=== PATIENT | female | born 1995 | race Caucasian/White ===

== ENCOUNTER → 2018-08-11 | Outpatient (CLI) | payer BC ==
--- NOTE | 2018-08-11 15:58 | RAD ---
Right breast ultrasound, 08/11/2018: HISTORY: Breast pain Patient describes generalized right breast pain with no palpable lump. The entire right breast was carefully scanned. Heterogeneous fibroglandular tissues are present. No solid mass or abnormal fluid collection is seen. IMPRESSION: No significant right breast abnormality is detected. Clinical surveillance is suggested. Electronically signed by: Jonathon Lazaro MD (08/11/2018 3:54 PM) [facility]
== END | disposition home or self-care (01) ==
LOC: US 15:14
PROVIDERS: ATTEND Physician Assistant
DX: N64.4 Mastodynia (principal)
CPT/HCPCS: 76641

== ENCOUNTER 2021-03-10 23:13 | Emergency (ER) | payer BC ==
[~2021-03-10] VITALS: Ht 157.5 cm; Wt 78.5 kg
--- NOTE | 2021-03-10 23:19 | PHYS DOC ---
Past History Past Medical History: Constipation, UTI General Adult HPI: HPI: ".. I ve been having pain in my abdomen..down her on my Rt..now.." Patient is a 25 year old female who presents with above hx and complaints mid and rt. lower abdomen pain. No history of bad food. No specific ill contacts. No history of recent travel. No history of trauma. Pain has been constant since 22 00 hours. Reportedly did have a bowel movement today. Patient have history of past urinary tract infections constipation. No history of ovarian cyst, STDs, kidney stones, dysmenorrhea, or endometriosis. No history immunosuppression. Pt. follows with [facility] for care. Review of Systems: Review of Systems: Constitutional: Denies fever or chills Eyes: Denies change in visual acuity HENT: Denies nasal congestion or sore throat Respiratory: Denies cough or shortness of breath Cardiovascular: Denies chest pain or edema GI: Complains of abdominal pain, nausea,. Denies vomiting, bloody stools or diarrhea : Denies dysuria Musculoskeletal: Denies back pain or joint pain Integument: Denies rash Neurologic: Denies headache, focal weakness or sensory changes Endocrine: Denies polyuria or polydipsia Lymphatic: Denies swollen glands Psychiatric: Denies depression or anxiety Family History: Family History: Noncontributory Current Medications: Current Meds: See nursing for home meds Allergies: Allergies: No known drug allergies Physical Exam: PE: Constitutional: Well developed, well nourished, no acute distress, non-toxic appearance. [] HENT: Normocephalic, atraumatic, bilateral external ears normal, oropharynx moist, no oral exudates, nose normal. [] Eyes: PERRLA, EOMI, conjunctiva normal, no discharge. [] Neck: Normal range of motion, no tenderness, supple, no stridor. [] Cardiovascular: Tachycardia heart rate regular rhythm, no murmur [] Lungs & Thorax: Bilateral breath sounds equal to apex with scattered wheezes auscultation [] Abdomen: Bowel sounds normal, soft, right mid and lower abdomen tenderness, no masses, no pulsatile masses. Distended. Rebound to mid abdomen. Patient declines pelvic exam at this time. Skin: Warm, dry, no erythema, no rash. [] Back: No tenderness, no CVA tenderness. [] Extremities: No tenderness, no cyanosis, no clubbing, ROM intact, no edema. No Trousseau sign. Neurologic: Alert and oriented X 3, normal motor function, normal sensory function, no focal deficits noted. [] Psychologic: Affect normal, judgement normal, mood normal. [] EKG: EKG: My interpretation EKG shows a sinus tachycardia 4 bpm. No findings of acute STEMI. No significant concerning morphology changes. Time of EKG is 2338 hrs. [] Radiology/Procedures: Radiology/Procedures: [address] [address] IMAGING REPORT Signed PATIENT: ALVAREZ KELLER RACCOUNT: [id number] : 1995 LOCATION: ER AGE: 25 SEX: F EXAM STATUS: REG ER ORD. PHYSICIAN: SHELBIE SAENZ MD REASON: OMNI 240,30ML PO.OMNI 300,75ML IV.RLQ pain PROCEDURE: CT ABD PELV W/ORAL&IV CONTRAST EXAM: CT ABDOMEN/PELVIS WITH CONTRAST. HISTORY: Right lower quadrant pain. TECHNIQUE: Computed tomography of the abdomen and pelvis was performed after the intravenous administration of iodinated contrast. One or more of the following individualized dose reduction techniques were utilized for this examination: 1. Automated exposure control. 2. Adjustment of the mA and/or kV according to patient size. 3. Use of iterative reconstruction technique. COMPARISON: None. FINDINGS: Lung windows through the visualized portions of the bases reveal mild atelectasis. Bone windows reveal no suspicious lesions. The appendix is not inflamed. There is no small bowel obstruction. There are no pathologically enlarged lymph nodes. The liver, gallbladder, kidneys, pancreas and spleen are unremarkable. IMPRESSION: 1. Normal appendix. No cause for pain is identified. Electronically signed by: Yenny Mason MD (03/11/2021 2:56 AM) [facility] DICTATED AND SIGNED BY: EMERITA MASON MD DATE: 03/11/21 0251 CC: SHELBIE SAENZ MD; KACI RICHARDS PA ~MTH0 0 [][address] [address] IMAGING REPORT Signed PATIENT: ALVAREZ KELLER RACCOUNT: [id number] : 1995 LOCATION: ER AGE: 25 SEX: F EXAM STATUS: REG ER ORD. PHYSICIAN: SHELBIE SAENZ MD REASON: RIGHT LOWER ABD PAIN RADIATING TO FLANK AND BACK PROCEDURE: ACUTE ABDOMEN SERIES XR ABDOMEN COMP ACUTE History: Reason: RIGHT LOWER ABD PAIN RADIATING TO FLANK AND BACK / Spl. Instr uctions: / History: Technique: Upright and supine views of the abdomen. Comparison: None. Findings: No consolidation or pleural effusion. No pneumothorax. Normal heart size. No pneumoperitoneum. Minimal small bowel gas. Air and stool throughout the colon. Moderate colonic stool burden. No air-fluid levels. Impression: 1. Nonobstructed bowel gas pattern. Electronically signed by: Rasta Ordonez DO (03/11/2021 12:26 AM) [facility] DICTATED AND SIGNED BY: RASTA ORDONEZ DO DATE: 03/11/21 0024 CC: SHELBIE SAENZ MD; KACI RICHARDS ~MTH0 0 Heart Score: C/O Chest Pain: N/A Risk Factors: Risk Factors: DM, Current or recent (<one month) smoker, HTN, HLP, family history of CAD, obesity. Risk Scores: Score 0 - 3: 2.5% MACE over next 6 weeks - Discharge Home Score 4 - 6: 20.3% MACE over next 6 weeks - Admit for Clinical Observation Score 7 - 10: 72.7% MACE over next 6 weeks - Early Invasive Strategies Course & Med Decision Making: Course & Med Decision Making Pertinent Labs and Imaging studies reviewed. (See chart for details) Patient stay on clear fluid diet for the next 48 hours. No solids. No milk products. Allow bowel rest. Tylenol and ibuprofen for pain. Follow-up with primary care. Return if any concerns. Reexam if no improvement. Impression: 1. Abdomen pain 2. Constipation 3. Marijuana and tobacco use [] Ramon Disclaimer: Ramon Disclaimer: This electronic medical record was generated, in whole or in part, using a voice recognition dictation system. Departure Departure: Referrals: KACI RICHARDS (PCP) Ramon Disclaimer This chart was dictated in whole or in part using Voice Recognition software in a busy, high-work load, and often noisy Emergency Department environment. It may contain unintended and wholly unrecognized errors or omissions. Dragon Disclaimer This chart was dictated in whole or in part using Voice Recognition software in a busy, high-work load, and often noisy Emergency Department environment. It may contain unintended and wholly unrecognized errors or omissions. SHELBIE SAENZ MD Mar 10, 2021 23:19
[2021-03-11] MEDS ORDERED: IV RINGERS SOLUTION,LACTATED 1,000 ML IV SCH
[2021-03-11] MEDS ORDERED: ONDANSETRON PF 4 MG/2 ML VIAL. IVP ONE
[2021-03-11] MEDS ORDERED: KETOROLAC 30 MG/ML VIAL. IVP ONE
[2021-03-11] MEDS ORDERED: FAMOTIDINE 20 MG/2 ML VIAL IVP ONE
--- NOTE | 2021-03-11 00:11 | EKG ---
[address] [address] Test Date: 2021-03-10 Test Time: 23:38:18 Pat Name: ALVAREZ KELLER Department: Room: Gender: F Lehr Stripper: : 1995 Requested By: SHELBIE SAENZ Order Number: [id number] Reading MD: Measurements Intervals [place] Rate: 104 P: 1 NH: 142 QRS: 56 QRSD: 90 T: 41 QT: 328 QTc: 437 Interpretive Statements SINUS TACHYCARDIA OTHERWISE NORMAL ECG RI6.02 No previous ECG available for comparison
[2021-03-11 00:17] LABS: BASO % 0 % (0-3); EOS # 0.1 x10^3/uL (0.0-0.7); EOS % 1 % (0-3); HEMATOCRIT 43.2 % (36.0-47.0); HEMOGLOBIN 14.8 g/dL (12.0-15.5); LYMPH # 2.7 x10^3/uL (1.0-4.8); LYMPH % 29 % (24-48); MEAN CORPUSCULAR HEMOGLOBIN 30 pg (25-35); MEAN CORPUSCULAR HGB CONC 34 g/dL (31-37); MEAN CORPUSCULAR VOLUME 89 fL (79-100); MONO # 0.7 x10^3/uL (0.0-1.1); MONO % 8 % (0-9); NEUT % 63 % (31-73); PLATELET COUNT 226 x10^3/uL (140-400); RED BLOOD COUNT 4.88 x10^6/uL (3.50-5.40); RED CELL DISTRIBUTION WIDTH 13.2 % (11.5-14.5); WHITE BLOOD COUNT 9.6 x10^3/uL (4.0-11.0)
[2021-03-11 00:18] LABS: CALCIUM 8.8 mg/dL (8.5-10.1); GFR 68.7; POTASSIUM 3.4 mmol/L (3.5-5.1)
[2021-03-11 00:24] LABS: BACTERIA,URINE FEW /HPF (0-FEW); BILIRUBIN,URINE NEG (NEG); CLARITY,URINE CLEAR; COLOR,URINE STRAW; GLUCOSE,URINE NEG (NEG); NITRITE,URINE NEG (NEG); RBC,URINE 0 /HPF (0-2); SQUAMOUS EPITHELIAL CELL,UR FEW /LPF; UROBILINOGEN,URINE 0.2 mg/dL (0.2 mg/dL); WBC,URINE 0 /HPF (0-4)
[2021-03-11 00:24] LABS: ALBUMIN 4.2 g/dL (3.4-5.0); DIRECT BILIRUBIN 0.1 mg/dL (0.0-0.2); TOTAL BILIRUBIN 0.3 mg/dL (0.2-1.0); TOTAL PROTEIN 7.7 g/dL (6.4-8.2)
[2021-03-11 00:25] LABS: BARBITURATES NEG (NEG); BENZODIAZEPINES NEG (NEG); CANNABINOIDS POS (NEG); COCAINE NEG (NEG); METHADONE NEG (NEG); OPIATES NEG (NEG); PHENCYCLIDINE NEG (NEG)
[2021-03-11 00:28] LABS: AMPHETAMINE/METHAMPHETAMINE NEG (NEG)
--- NOTE | 2021-03-11 00:29 | RAD ---
XR ABDOMEN COMP ACUTE History: Reason: RIGHT LOWER ABD PAIN RADIATING TO FLANK AND BACK / Spl. Instructions: / History: Technique: Upright and supine views of the abdomen. Comparison: None. Findings: No consolidation or pleural effusion. No pneumothorax. Normal heart size. No pneumoperitoneum. Minimal small bowel gas. Air and stool throughout the colon. Moderate colonic stool burden. No air-fl uid levels. Impression: 1. Nonobstructed bowel gas pattern. Electronically signed by: Rasta Ordonez DO (03/11/2021 12:26 AM) [facility] [place]
[2021-03-11] MEDS ORDERED: IOHEXOL 240 MG/ML 50ML VIAL. ONE (01:12)
[2021-03-11] MEDS ORDERED: MAGNESIUM HYDROXIDE 2,400 MG/30 ML ORAL.SUSP. PO ONE (01:15)
[2021-03-11] MEDS ORDERED: IOHEXOL 300 MG/ML 75 ML VIAL. IV ONE (01:30)
[2021-03-11] MEDS ORDERED: CONTRAST GIVEN. MC PRN (01:30)
--- NOTE | 2021-03-11 02:59 | RAD ---
EXAM: CT ABDOMEN/PELVIS WITH CONTRAST. HISTORY: Right lower quadrant pain. TECHNIQUE: Computed tomography of the abdomen and pelvis was performed after the intravenous administ ration of iodinated contrast. One or more of the following individualized dose reduction techniques w ere utilized for this examination: 1. Automated exposure control. 2. Adjustment of the mA and/or kV according to patient size. 3. Use of iterative reconstruction technique. COMPARISON: None. FINDINGS: Lung windows through the visualized portions of the bases reveal mild atelectasis. Bone win dows reveal no suspicious lesions. The appendix is not inflamed. There is no small bowel obstruction. There are no pathologically enlarg ed lymph nodes. The liver, gallbladder, kidneys, pancreas and spleen are unremarkable. IMPRESSION: 1. Normal appendix. No cause for pain is identified. Electronically signed by: Yenny Mason MD (03/11/2021 2:56 AM) [facility]
[2021-03-11 03:35] VITALS: BP 120/70
== END 2021-03-11 03:37 | disposition home or self-care (01) ==
LOC: ER 23:13
DX: K59.00 Constipation, unspecified (principal); F12.10 Cannabis abuse, uncomplicated
CPT/HCPCS: 36415; 74022; 74177; 80048; 80076; 80307; 81001; 81025; 82150; 83690; 85025; 93005; 96361; 96374; 96375; 99285; J1885; J2405; J3490; J7120; Q9967